=== PATIENT | female | born 1945 | race Asian ===

== ENCOUNTER 2016-02-26 09:45 | Day surgery (SDC) | payer OTHER ==
[2016-02-26] MEDS ORDERED: PROPOFOL 20 ML ONE ×3 (10:06)
[2016-02-26 10:51] VITALS: BMI 18.4
[2016-02-26 11:45] VITALS: TEMP 97.7
[2016-02-26 12:53] VITALS: BP 112/52; PULSE 83
== END 2016-02-26 12:54 | disposition home or self-care (01) ==
LOC: JASU-ENDO 09:45
PROVIDERS: ATTEND Internal Medicine Gastroenterology
PROC: 0DJD8ZZ Inspection of Lower Intestinal Tract, Via Natural or Artificial Opening Endoscopic (ICD-10-PCS; principal; 2016-02-26 10:30)
DX: Z12.11 Encounter for screening for malignant neoplasm of colon (principal); K63.89 Other specified diseases of intestine